=== PATIENT | female | born 2000 | race Caucasian/White ===

== ENCOUNTER 2023-07-06 11:13 | Emergency (ER) | payer OTHER, SELFPAY ==
[2023-07-06 11:20] VITALS: BP 121/86; PULSE 112; RESP 18; TEMP 36.5; O2SAT 100
--- NOTE | 2023-07-06 11:49 | ED.NAVMDI ---
HPI - Nausea/Vomiting/Diarrhea General Chief complaint: Nausea/Vomiting/Diarrhea Stated complaint: nausea/ Time Seen by Provider: 07/06/23 11:22 Source: patient and family Mode of arrival: ambulatory Limitations: no limitations History of Present Illness HPI Narrative: patient is a 23-year-old female who is currently 12 weeks gestational. She had nausea since 8 weeks however she is having worsened nausea and vomits any type of liquid or solid intake. This has been going on for 24 hours. OBGYN assistant professor of education suggested ER visit. MD elicited complaint: nausea and vomiting Onset (ago): hour(s) (24) Description of vomiting: food contents and watery Associated nausea: Yes Associated abdominal pain: No Location of pain: none Exacerbating factors: eating Relieving factors: none Associated symptoms: denies other symptoms Related Data Allergies Allergy/AdvReac Type Severity Reaction Status Date / Time morphine Allergy Unknown Verified 07/06/23 12:39 Review of Systems Review of Systems: All systems reviewed & are unremarkable except as noted in HPI and below Constitutional: Constitutional: Reports no additional constitutional complaints Eyes: Eyes: Reports no additional eye complaints ENT: Reports system reviewed and no additional complaints, except as documented Cardiovascular: Cardiovascular: Reports no additional cardiovascular complaints Respiratory: Respiratory: Reports no additional respiratory complaints Gastrointestinal: Gastrointestinal: Reports no additional gastrointestinal complaints Genitourinary: Genitourinary: Reports no additional female genitourinary complaints Musculoskeletal: Musculoskeletal: Reports no additional musculoskeletal complaints Integumentary/Breasts: Skin/Breast: Reports system reviewed and no additional complaints, except as docu Neurologic: Reports system reviewed and no additional complaints, except as documented Psychiatric: Psychiatric: Reports no additional psychiatric complaints Endocrine: Endocrine: Reports no additional endocrine complaints Hematologic/Lymphatic: Hematologic/Lymphatic: Reports no additional hematologic/lymphatic complaints Allergic/Immunologic: Allergic/Immunologic: Reports no additional allergic/immunologic complaints Exam Const: General: cooperative, healthy appearing and comfortable HENMT: Head: normal to inspection, No palpable skull fracture present and normocephalic Eyes: General: appearance normal, both eyes and all related structures Visual Dempsey: normal visual dempsey by confrontation Alignment and Position: alignment normal Neck: Neck: normal visual inspection, full ROM and no lymphadenopathy Resp: Effort & Inspection: normal respiratory effort, able to speak in complete sentences and abnormal respiratory pattern Auscultation: clear to auscultation bilaterally, no crackles, no rales and no rhonchi Cardio: Jugular venous distension: no JVD Palpation: normal PMI Rate: regular rate Rhythm: regular rhythm Heart sounds: S1 normal heart sound present and S2 normal heart sound present GI: Inspection: normal to inspection, no abdominal wall ecchymosis, no edema, non-distended and no incisions GI Palp: No abdominal tenderness, No Abdominal aortic bruit present, Yes Soft to palpation, No Firmness to palpation present (GI), No Tenderness to palpation present (GI), No Guarding due to palpation present (GI), No Rigid due to palpation, Yes No hepatosplenomegaly present and No Bladder palpation abnormal Back/Spine/Pelvis: Back: no CVA tenderness Skin: General skin exam: normal color, no rashes or lesions noted and elasticity normal Neuro: General: oriented to person, oriented to place, oriented to time and patient oriented x3 Psych: Appearance: grossly normal, well kempt and not disheveled Mental Status: mental status grossly normal Course Vital Signs Vital signs: Vital Signs Temperature 36.5 C 07/06/23 11:20 Pulse Rate 112 H 07/06/23 1
[2023-07-06] MEDS: SODIUM CHLORIDE 0.9% IV 1,000 ML 999 ML IV CONT ×2 (11:56→12:35)
[2023-07-06 12:00] LABS: Bilirubin Urine Negative (Negative); Blood Urine Negative (Negative); Color Urine Yellow (Yellow); Glucose Urine UA Negative (Negative); Ketones Urine 3+ (Negative); Leukocyte Esterase Ur Negative LEU/UL (Negative); Nitrate Urine Negative (Negative); Protein Urine Trace (Negative); Specific Grav Ur 1.025 (1.010-1.020); pH Urine 6.5 (5.0-8.0)
[2023-07-06] MEDS: ONDANSETRON INJ 4 MG/2 ML VIAL IV PUSH (12:00)
[2023-07-06 12:23] LABS: Basophils Absolute Auto 0.01 K/mm3 (0.00-0.10); Basophils Percent Auto 0.1 % (0.0-1.0); Eosinophils Absolute Auto 0.01 K/mm3 (0.02-0.50); Eosinophils Percent Auto 0.1 % (1.0-6.0); Hematocrit 34.4 % (35.0-49.0); Hemoglobin 12.2 g/dL (12.0-15.0); Immature Granulocyte Absolute 0.03 K/mm3 (0.00-0.00); Immature Granulocyte Percent A 0.4 % (0.0-0.0); Lymphocytes Absolute Auto 0.43 K/mm3 (1.10-4.50); Lymphocytes Percent Auto 5.2 % (18.0-42.0); Mean Corpuscular HGB Conc 35.5 g/dL (32.0-36.0); Mean Corpuscular Hemoglobin 31.9 pg (27.0-31.0); Mean Corpuscular Volume 90.1 fL (78.0-102.0); Mean Platelet Volume 9.6 fl (9.2-11.8); Monocytes Absolute Auto 0.27 K/mm3 (0.10-0.90); Monocytes Percent Auto 3.2 % (2.0-11.0); Neutrophils Absolute Auto 7.6 K/mm3 (1.7-7.2); Platelet Count Result 216 K/mm3 (150-420); Red Blood Count 3.82 M/mm3 (4.20-5.40); White Blood Count 8.3 K/mm3 (4.8-10.8)
[2023-07-06 12:25] LABS: Add Urine Microscopic? YES; Appearance Urine Slightly Cloudy (Clear); Squamous Epithelial Cell Urine Many /hpf (Few)
[2023-07-06 12:26] LABS: Amorphous Sediment Urine Moderate; Bacteria Urine 1+ /hpf; Mucus Urine Heavy /lpf
[2023-07-06 12:39] LABS: Alanine Aminotransferase 27 U/L (14-59); Albumin Level 3.2 g/dL (3.4-5.0); Alkaline Phosphatase 55 U/L (46-116); Anion Gap 12 mmol/L (8-16); Aspartate Amino Transferase 13 U/L (15-37); Bilirubin,Total 0.5 mg/dL (0.00-1.00); Blood Urea Nitrogen 13 mg/dL (7-18); Calcium 8.1 mg/dL (8.5-10.1); Carbon Dioxide 23 mmol/L (21-32); Chloride 102 mmol/L (98-108); Estimated CRCL calculation 119 ml/min; Estimated Glomerular Filt Rate > 60; Glucose 85 mg/dL (70-99); Magnesium 1.7 mg/dL (1.8-2.4); Osmolality Calculated 283 mOsm/kg (285-295); Potassium 3.5 mmol/L (3.5-5.1); Sodium 137 mmol/L (136-145); Total Protein 6.6 g/dL (6.4-8.2)
[2023-07-06] MEDS: MAGNESIUM OXIDE 400 MG TABLET 800 MG PO (12:50)
[2023-07-06 13:16] VITALS: BP 104/70; PULSE 87; RESP 20; TEMP 37.1; O2SAT 100
== END 2023-07-06 13:17 | disposition home or self-care (01) ==
PROVIDERS: Emergency Provider Emergency Medicine
DX: O23.42 Unspecified infection of urinary tract in pregnancy, second trimester (principal); O21.1 Hyperemesis gravidarum with metabolic disturbance; Z3A.12 12 weeks gestation of pregnancy
CPT/HCPCS: 36415; 80053; 81001; 83735; 85025; 96361; 96374; 99284; A9270; J2405; J7030

== ENCOUNTER 2024-04-02 17:15 | Emergency (ER) | payer OTHER, SELFPAY ==
[2024-04-02] VITALS (9 sets, daily range): BP systolic 109–150; BP diastolic 69–84; PULSE 56–107; RESP 17–18; TEMP 36.4; O2SAT 95–100
--- NOTE | ~2024-04-02 | XR_ITS ---
EXAMINATION: XR chest 2V Exam Date/Time: 04/02/2024 18:30 CDT HISTORY: ams/memory loss x1 day Comparison: None. RESULT: Lines, tubes, and devices: None. Lungs and pleura: Clear. Cardiomediastinal silhouette: Normal. Other: No acute osseous or upper abdominal finding. IMPRESSION: No acute cardiopulmonary process. Reviewed, dictated and finalized at location K.
--- NOTE | ~2024-04-02 | CT_ITS ---
EXAMINATION: CT brain wo con DATE: 04/02/2024 18:38 INDICATION: AMS/Memory loss x1 day . TECHNIQUE: Computed tomography (CT) of the head was performed without intravenous contrast. The mA wa s adjusted according to patient size. Iterative reconstruction technique was employed. The dose-lengt h product was 605.33 mGy-cm. COMPARISON: None. FINDINGS: No acute intracranial hemorrhage or extra-axial fluid collection. No hydrocephalus, mass, or herniation. No acute ischemic infarct. Unremarkable dural venous sinus attenuation. No acute osseous abnormality. Small retention cyst/polyps in the ethmoid sinuses and left maxillary sinus, the remaining aerated sp aces are clear. IMPRESSION: No acute intracranial process. Reviewed, dictated and finalized at location K.
--- NOTE | 2024-04-02 17:54 | ED.AMS ---
HPI - Altered Mental Status General Chief Complaint: Altered Mental Status Stated Complaint: memory loss Time Seen by Provider: 04/02/24 17:29 Source: patient Mode of arrival: ambulatory Limitations: no limitations History of Present Illness HPI narrative: Patient is a 24-year-old female who delivered a baby 2 months ago. She has been having 1 day mid back pain off to the right as well as some confusion and memory loss. She has short-term memory loss. She is an RN. Her long-term memory appears intact. Family is present and can confirm that she does not remember short-term discussions or what has happened in the last couple of days. She has been under lots of stress with the new baby. She was sick last week with a viral syndrome. No fever or chills at this time. No other symptoms at this time. She had near syncopal in the last few days but this has been a recurrent theme over the years. MD complaint: altered mental status and confusion Onset (ago): day(s) (1) Timing confirmed by: spouse and family member ( Father) Severity: moderate Consistency of symptoms: constant Context: recent fever ( viral syndrome last week) Associated symptoms: fever ( last week; resolved now) and headaches ( last week; resolved now) Related Data Home Medications Medication Instructions Recorded Confirmed No Home Medications 04/02/24 04/02/24 Allergies Allergy/AdvReac Type Severity Reaction Status Date / Time morphine Allergy Unknown Verified 04/02/24 17:24 Review of Systems Review of Systems: All systems reviewed & are unremarkable except as noted in HPI and below Constitutional: Constitutional: Reports no additional constitutional complaints Eyes: Eyes: Reports no additional eye complaints ENT: Reports system reviewed and no additional complaints, except as documented Cardiovascular: Cardiovascular: Reports no additional cardiovascular complaints Respiratory: Respiratory: Reports no additional respiratory complaints Gastrointestinal: Gastrointestinal: Reports no additional gastrointestinal complaints Genitourinary: Genitourinary: Reports no additional female genitourinary complaints Musculoskeletal: Musculoskeletal: Reports no additional musculoskeletal complaints Integumentary/Breasts: Skin/Breast: Reports system reviewed and no additional complaints, except as docu Neurologic: Reports system reviewed and no additional complaints, except as documented Psychiatric: Psychiatric: Reports no additional psychiatric complaints Endocrine: Endocrine: Reports no additional endocrine complaints Hematologic/Lymphatic: Hematologic/Lymphatic: Reports no additional hematologic/lymphatic complaints Allergic/Immunologic: Allergic/Immunologic: Reports no additional allergic/immunologic complaints Exam Const: General: healthy appearing Nutritional Appearance: well nourished Orientation/consciousness: patient oriented x3 Other: patient cannot remember going to the doctor's office with the baby few days ago. She cannot remember plans for tomorrow or what has happened the last 24 hours. Father and can confirm these things and she does not remember with confusion. HENMT: Head: normal to inspection Ears: external ears normal Face/Nose/Sinus: Normal external nose present Eyes: Conjunctivae: conjunctivae normal Pupils: Equal, round and reactive pupils present EOM: EOMs intact bilaterally Neck: Neck: normal visual inspection Chest: Chest palpation & inspection: normal inspection of the chest Resp: Effort & Inspection: normal respiratory effort and not labored Auscultation: clear to auscultation bilaterally Cardio: Rate: regular rate Rhythm: regular rhythm Heart sounds: no murmurs GI: Inspection: non-distended GI Palp: Yes Soft to palpation and No Tenderness to palpation present (GI) Auscultation: normal bowel sounds : General: Yes bladder normal to palpation Back/Spine/Pelvis: Back: no CVA tenderness Ski
--- NOTE | 2024-04-02 18:07 | ECG_ITS ---
Test Date: 2024-04-02 18:18:32 Measurements Intervals [place] Rate: 58 P: 50 TN: 166 QRS: 48 QRSD: 101 T: 30 QT: 392 QTc: 387 Interpretive Statements SINUS BRADYCARDIA INCOMPLETE RIGHT BUNDLE BRANCH BLOCK DELAYED PRECORDIAL R/S TRANSITION BORDERLINE T WAVE ABNORMALITY- ANT/INF LEADS BASELINE WANDER- I, III, AVR, AVL, AVF, V4-V6 BORDERLINE ECG No previous ECG available for comparison Electronically Signed On 04-02-2024 20:51:55 CDT by Iván Eller D.O.
[2024-04-02 18:13] LABS: Basophils Absolute Auto 0.02 K/mm3 (0.00-0.10); Basophils Percent Auto 0.3 % (0.0-1.0); Eosinophils Absolute Auto 0.01 K/mm3 (0.02-0.50); Eosinophils Percent Auto 0.2 % (1.0-6.0); Hematocrit 33.8 % (35.0-49.0); Hemoglobin 11.8 g/dL (12.0-15.0); Immature Granulocyte Absolute 0.03 K/mm3 (0.00-0.00); Immature Granulocyte Percent A 0.5 % (0.0-0.0); Lymphocytes Absolute Auto 0.52 K/mm3 (1.10-4.50); Lymphocytes Percent Auto 7.9 % (18.0-42.0); Mean Corpuscular HGB Conc 34.9 g/dL (32-36); Mean Corpuscular Hemoglobin 29.6 pg (27.0-31.0); Mean Corpuscular Volume 84.9 fL (78.0-102.0); Mean Platelet Volume 9.7 fl (9.2-11.8); Monocytes Absolute Auto 0.27 K/mm3 (0.10-0.90); Monocytes Percent Auto 4.1 % (2.0-11.0); Neutrophils Absolute Auto 5.71 K/mm3 (1.70-7.20); Platelet Count Result 268 K/mm3 (150-420); Red Blood Count 3.98 M/mm3 (4.20-5.40); Red Cell Distribution Width 12.6 % (11.6-14.4); White Blood Count 6.6 K/mm3 (4.8-10.8)
[2024-04-02 18:15] LABS: Appearance Urine Clear (Clear); Bilirubin Urine Negative (Negative); Blood Urine Negative (Negative); Color Urine Light Yellow (Yellow); Glucose Urine UA Negative (Negative); Ketones Urine Trace (Negative); Leukocyte Esterase Ur Trace LEU/UL (Negative); Nitrate Urine Negative (Negative); Protein Urine Negative (Negative); Specific Grav Ur >= 1.030 (1.010-1.020); Urobilinogen Urine 0.2 mg/dL (0.2-1.0)
[2024-04-02 18:20] LABS: Pregnancy On Board Control Positive; Urine Pregnancy Test Negative
[2024-04-02 18:22] LABS: Amphetamine Screen Urine Negative (Negative); Barbiturate Screen Urine Negative (Negative); Benzodiazepines Screen Urine Negative (Negative); Cannabinoid Screen Urine Negative (Negative); Cocaine Screen Urine Negative (Negative); Methadone Screen Urine Negative (Negative); Opiate Screen Urine Negative (Negative); Phencyclidine Screen Urine Negative (Negative)
[2024-04-02 18:23] LABS: Add Urine Microscopic? YES; Amorphous Sediment Urine Few; Bacteria Urine 4+ /hpf; RBC Urine 0-2 /hpf (0-2); Squamous Epithelial Cell Urine Few /hpf (Few); WBC Urine 0-3 /hpf (0-3)
[2024-04-02 18:28] LABS: Alanine Aminotransferase 10 U/L (14-59); Albumin Level 3.8 g/dL (3.4-5.0); Alkaline Phosphatase 80 U/L (46-116); Anion Gap 9 mmol/L (4-12); Aspartate Amino Transferase 20 U/L (15-37); Bilirubin,Total 0.5 mg/dL (0.00-1.00); Blood Urea Nitrogen 20 mg/dL (7-18); Calcium 8.6 mg/dL (8.5-10.1); Carbon Dioxide 26 mmol/L (21-32); Chloride 106 mmol/L (98-108); Estimated CRCL calculation 84 ml/min; Estimated Glomerular Filt Rate > 60; Glucose 102 mg/dL (70-99); Osmolality Calculated 294 mOsm/kg (285-295); Potassium 3.4 mmol/L (3.5-5.1); Sodium 141 mmol/L (136-145); Total Protein 7.3 g/dL (6.4-8.2)
[2024-04-02 18:32] LABS: Lactic Acid Reflex 0.6 mmol/L (0.4-2.0)
[2024-04-02 18:47] LABS: Ethanol < 3 mg/dL (0-6); Thyroid Stimulating Hormone 0.43 uIU/mL (0.36-3.74)
[2024-04-02 18:54] LABS: SARS-CoV-2 RNA PCR Negative (Negative)
[2024-04-02 18:55] LABS: Influenza A QL RT-PCR Negative (Negative); Influenza B QL RT-PCR Negative (Negative); RSV RNA, RT-PCR Negative (Negative)
--- NOTE | 2024-04-02 18:55 | PC.NURSE ---
assumed care. report received from Rosalind CARABALLO.
--- NOTE | 2024-04-02 19:05 | PC.NURSE ---
patient is resting on stretcher with family at the bedside. denies any needs at this time
--- NOTE | 2024-04-02 19:20 | PC.NURSE ---
ER provider at the bedside
[2024-04-02] MEDS: POTASSIUM CHLORIDE 20 MEQ ER TABLET PO (19:46)
[2024-04-02] MEDS: CEPHALEXIN 500 MG CAPSULE PO (19:46)
== END 2024-04-02 19:56 | disposition home or self-care (01) ==
PROVIDERS: Emergency Provider Emergency Medicine
DX: R41.3 Other amnesia (principal); Z20.822 Contact with and (suspected) exposure to COVID-19
CPT/HCPCS: 36415; 70450; 71046; 80053; 80307; 81001; 81025; 83605; 84443; 85025; 87637; 93005; 99284; A9270

== ENCOUNTER 2024-04-07 21:59 | Emergency (ER) | payer OTHER, SELFPAY ==
[2024-04-07] VITALS (10 sets, daily range): BP systolic 124–150; BP diastolic 77–99; PULSE 63–128; RESP 20–28; TEMP 36.2; O2SAT 99–100
--- NOTE | ~2024-04-07 | CT_ITS ---
EXAMINATION: CT brain wo con DATE: 04/07/2024 23:09 INDICATION: Seizure TECHNIQUE: Computed tomography (CT) of the head was performed without intravenous contrast. Sagittal and coronal reconstructions were performed. The mA was adjusted according to patient size. Iterative reconstruction technique was employed. The dose-length product was 605.33 mGy-cm. COMPARISON: head CT dated 04/02/2024 FINDINGS: No acute intracranial hemorrhage, acute infarction or abnormal extra axial fluid collection. Ventricl es are normal and symmetric. No mass/mass effect. Mild mucosal thickening in the bilateral ethmoid an d maxillary sinuses. The orbits, paranasal sinuses and mastoid air cells are normal. IMPRESSION: 1. Normal brain. No acute intracranial process. Reviewed, dictated and finalized at location A.
--- NOTE | 2024-04-07 22:12 | ED.FEVER ---
HPI - Fever General Chief Complaint: Unspecified Stated Complaint: fever Time Seen by Provider: 04/07/24 22:12 Source: patient Mode of arrival: ambulatory Limitations: no limitations History of Present Illness HPI Narrative: 24-year-old female, juvenile rheumatoid arthritis not on any medication, 12 weeks presents to the with -- concerns for listeria. The patient had eaten contaminated green beans 2 weeks ago. After ingesting a contaminated food patient had diarrhea and fever. patient presented on 04/02/2024 this ED for memory loss altered mental status. the patient was afebrile with normal vital signs. No GI symptoms were noted.The patient had a CT EKG which was Unremarkable. The following day the patient had a seizure. patient was admitted at [facility] where she had a normal EEG and an MRI. The patient did not have LP with CSF examination The patient has been having -- headache, confusion, lightheadedness -- memory problems. the patient was noted to be afebrile. No focal neuro deficits were noted. While waiting in the ED the patient developed -- an aura involving lightheadedness and not feeling well. subsequently the patient had -- urticarial rash in the neck. 2 minutes after that the patient developed -- generalized seizures-- clonic activity with dilated pupils, gaze to the right, cyanosis of the lips. this lasted around 3 minutes. the patient received 2 mg of IV Ativan. Subsequently the patient is drowsy but follows verbal commands. blood sugar 112 Measured temperature: 36.2 C Exacerbating factors: nothing Relieving factors: nothing Associated symptoms: denies other symptoms Related Data Allergies Allergy/AdvReac Type Severity Reaction Status Date / Time morphine Allergy Unknown Verified 04/07/24 23:48 Review of Systems Review of Systems: All systems reviewed & are unremarkable except as noted in HPI and below Constitutional: Constitutional: Reports as per HPI and Reports no additional constitutional complaints Eyes: Eyes: Reports as per HPI and Reports no additional eye complaints ENT: Reports system reviewed and no additional complaints, except as documented and Reports as per HPI Cardiovascular: Cardiovascular: Reports as per HPI and Reports no additional cardiovascular complaints Respiratory: Respiratory: Reports as per HPI and Reports no additional respiratory complaints Gastrointestinal: Gastrointestinal: Reports as per HPI and Reports no additional gastrointestinal complaints Genitourinary: Genitourinary: Reports no additional female genitourinary complaints and Reports as per HPI Musculoskeletal: Musculoskeletal: Reports no additional musculoskeletal complaints and Reports as per HPI Integumentary/Breasts: Skin/Breast: Reports system reviewed and no additional complaints, except as docu and Reports as per HPI Neurologic: Reports system reviewed and no additional complaints, except as documented and Reports as per HPI Psychiatric: Psychiatric: Reports no additional psychiatric complaints and Reports as per HPI Endocrine: Endocrine: Reports no additional endocrine complaints and Reports as per HPI Hematologic/Lymphatic: Hematologic/Lymphatic: Reports no additional hematologic/lymphatic complaints and Reports as per HPI Allergic/Immunologic: Allergic/Immunologic: Reports no additional allergic/immunologic complaints and Reports as per HPI REPLACED BY [facility] Past Medical History Medical History (Updated 04/07/24 @ 23:39 by Parviz Valverde MD) Juvenile rheumatoid arthritis Exam Const: General: no acute distress Orientation/consciousness: patient oriented x3 Limitations: no limitations HENMT: Head: normal to inspection Ears: external ears normal Face/Nose/Sinus: Normal external nose present Face and sinus: normal facial exam Mouth: Yes Normal oral and palatal mucosa present Throat: posterior oropharynx normal Eyes: Conjunctivae: conjunctivae normal Pup
[2024-04-07] MEDS: LORazepam INJ (*CRX) 2 MG/ML VIAL IV PUSH (22:45)
[2024-04-07] MEDS: levETIRAcetam 1000MG/NACL100ML 1,000 MG/100 ML BAG 400 MG IVPB (23:10)
[2024-04-07 23:15] LABS: Basophils Absolute Auto 0.05 K/mm3 (0.00-0.10); Basophils Percent Auto 0.6 % (0.0-1.0); Eosinophils Absolute Auto 0.14 K/mm3 (0.02-0.50); Eosinophils Percent Auto 1.7 % (1.0-6.0); Hemoglobin 13.2 g/dL (12.0-15.0); Immature Granulocyte Absolute 0.08 K/mm3 (0.00-0.00); Lymphocytes Absolute Auto 2.08 K/mm3 (1.10-4.50); Lymphocytes Percent Auto 25.3 % (18.0-42.0); Mean Corpuscular HGB Conc 33.8 g/dL (32-36); Mean Corpuscular Hemoglobin 29.6 pg (27.0-31.0); Mean Corpuscular Volume 87.4 fL (78.0-102.0); Mean Platelet Volume 9.8 fl (9.2-11.8); Monocytes Absolute Auto 0.48 K/mm3 (0.10-0.90); Monocytes Percent Auto 5.8 % (2.0-11.0); Neutrophils Percent Auto 65.6 % (50.0-70.0); Platelet Count Result 346 K/mm3 (150-420); Red Blood Count 4.46 M/mm3 (4.20-5.40); Red Cell Distribution Width 12.4 % (11.6-14.4); White Blood Count 8.2 K/mm3 (4.8-10.8)
[2024-04-07 23:30] LABS: Alanine Aminotransferase 18 U/L (14-59); Alkaline Phosphatase 114 U/L (46-116); Anion Gap 17 mmol/L (4-12); Aspartate Amino Transferase 21 U/L (15-37); Bilirubin,Total 0.7 mg/dL (0.00-1.00); Blood Urea Nitrogen 17 mg/dL (7-18); Calcium 8.8 mg/dL (8.5-10.1); Carbon Dioxide 20 mmol/L (21-32); Chloride 99 mmol/L (98-108); Estimated CRCL calculation 61 ml/min; Estimated Glomerular Filt Rate 59; Glucose 138 mg/dL (70-99); Osmolality Calculated 285 mOsm/kg (285-295); Potassium 3.3 mmol/L (3.5-5.1); Sodium 136 mmol/L (136-145); Total Protein 7.8 g/dL (6.4-8.2)
[2024-04-07 23:31] LABS: Creatine Kinase 200 U/L (26-192)
[2024-04-07 23:32] LABS: Lactic Acid Reflex 11.1 mmol/L (0.4-2.0)
[2024-04-07 23:34] LABS: Glucose Point of Care 113 mg/dl (65-105)
--- NOTE | 2024-04-07 23:38 | PC.NURSE ---
2235 PT HAD A SEIZURE PLACED ON LEFT SIDE IV STARTED AND PT WAS INCONTINENT OF URINE 0 PT MORE ALERT KNOW AND AWARE OF HER SURROUNDINGS
[2024-04-08] VITALS (21 sets, daily range): BP systolic 103–129; BP diastolic 66–89; PULSE 56–105; RESP 14–27; TEMP 37.1; O2SAT 96–100
[2024-04-08] MEDS: LACTATED RINGERS 1,000 ML 999 ML IV CONT (00:19)
[2024-04-08 00:37] LABS: Pregnancy On Board Control Positive; Urine Pregnancy Test Negative
[2024-04-08 00:39] LABS: Appearance Urine Clear (Clear); Bilirubin Urine Negative (Negative); Color Urine Light Yellow (Yellow); Glucose Urine UA Negative (Negative); Ketones Urine 1+ (Negative); Leukocyte Esterase Ur 3+ LEU/UL (Negative); Nitrate Urine Negative (Negative); Protein Urine Trace (Negative); Specific Grav Ur 1.015 (1.010-1.020); Urobilinogen Urine 0.2 mg/dL (0.2-1.0); pH Urine 6.5 (5.0-8.0)
[2024-04-08 00:44] LABS: Add Urine Microscopic? YES; Amphetamine Screen Urine Negative (Negative); Bacteria Urine 2+ /hpf; Barbiturate Screen Urine Negative (Negative); Benzodiazepines Screen Urine Negative (Negative); Blood Urine Trace-Lysed (Negative); Cannabinoid Screen Urine Negative (Negative); Cocaine Screen Urine Negative (Negative); Methadone Screen Urine Negative (Negative); Opiate Screen Urine Negative (Negative); Phencyclidine Screen Urine Negative (Negative); RBC Urine 0-2 /hpf (0-2); Squamous Epithelial Cell Urine Few /hpf (Few)
--- NOTE | 2024-04-08 01:12 | PC.NURSE ---
Attempting transfer to [facility], no call back at this time, Pt and spouse and family want to try [facility] for transfer. Calls made to [facility] for transfer.
[2024-04-08 02:14] LABS: Reflex Lactic Acid Yes or No Add Lactic
--- NOTE | 2024-04-10 12:27 | PC.NURSE ---
URINE CULTURE REVIEWED. NO UTI INDICATED
== END 2024-04-08 02:35 | disposition short-term general hospital (02) ==
PROVIDERS: Emergency Provider Internal Medicine Critical Care Medicine
DX: R56.9 Unspecified convulsions (principal)
CPT/HCPCS: 36415; 70450; 80053; 80307; 81001; 81025; 82550; 82948; 83605; 85025; 87040; 87086; 87088; 96365; 96375; 99285; J0696; J1953; J2060; J7120